=== PATIENT | male | born 1995 | race Two or more races ===

== ENCOUNTER 2024-10-16 00:26 | Emergency (ER) | payer OTHER ==
[~2024-10-16] VITALS: Ht 177.8 cm; Wt 97.5 kg
[2024-10-16 00:57] VITALS: BP 114/70; O2SAT 100
[2024-10-16] MEDS ORDERED: TETANUS & DIPHTHERIA TOX,ADULT 0.5 ML VIAL IM STA (03:28)
[2024-10-16] MEDS ORDERED: KETOROLAC TROMETHAMINE 10 MG TABLET PO STA (03:28)
[2024-10-16] MEDS ORDERED: KETOROLAC TROMETHAMINE 10 MG TABLET PO ONE (03:46)
[2024-10-16] MEDS ORDERED: DIPHTH,PERTUSS(ACELL),TET VAC 0.5 ML SYRINGE IM ONE (03:47)
[2024-10-16] MEDS ORDERED: KETO10TA2 PO (05:17)
== END 2024-10-16 06:44 ==
LOC: ER 01:26
DX: S62.656A Nondisplaced fracture of middle phalanx of right little finger, initial encounter for closed fracture (principal); V18.0XXA Pedal cycle driver injured in noncollision transport accident in nontraffic accident, initial encounter; Y93.55 Activity, bike riding; Y92.413 State road as the place of occurrence of the external cause
CPT/HCPCS: 90471; 90714; J1670